=== PATIENT | female | born 1950 | race Asian ===

== ENCOUNTER 2018-01-14 06:23 | Inpatient (IN) | payer MEDICARE, OTHER ==
[2018-01-07 11:11] LABS: HEMATOCRIT 37.8 % (37.0-47.0); HEMOGLOBIN 12.4 gm/dL (12.0-15.0); MCH 28.6 pg (26.0-34.0); MCHC 32.7 g/dL (28.0-37.0); MCV 87.5 fL (80.0-100.0); RBC 4.32 mil/uL (4.20-5.00); RDW-CV 18.3 % (10.5-14.5); WBC 11.3 thou/uL (4.0-11.0)
[2018-01-07 11:16] LABS: URINE BILIRUBIN NEGATIVE (Negative); URINE BLOOD NEGATIVE (Negative); URINE CLARITY CLEAR; URINE COLOR YELLOW; URINE GLUCOSE-RANDOM NEGATIVE (Negative); URINE KETONES NEGATIVE (Negative); URINE LEUKOCYTES-REFLEX NEGATIVE (Negative); URINE NITRITE-REFLEX NEGATIVE (Negative); URINE PROTEIN NEGATIVE (Negative); URINE SPECIFIC GRAVITY 1.025 (1.005-1.030); URINE UROBILINOGEN 0.2 E.U./dl (0.2-1.0)
[2018-01-07 11:19] LABS: PROTIME 9.7 Seconds (9.20-11.50)
[2018-01-07 11:37] LABS: ALBUMIN 3.6 g/dL (3.4-5.0); CALCIUM 8.5 mg/dL (8.5-10.1); CREATININE 0.8 mg/dL (0.6-1.3); POTASSIUM 4.4 mmol/L (3.5-5.1); TOTAL BILIRUBIN 0.4 mg/dL (<0.1-1.0); TOTAL PROTEIN 6.4 g/dL (6.4-8.2)
--- NOTE | 2018-01-07 15:22 | EKG ---
[place] [address] ELECTROCARDIOGRAM REPORT Name: WILLIAM AZEVEDO Room: [facility].#: [id number] Admission: Attend Phys: Nathalie Pacheco Discharge: Date of : 54 Report #: [id number] THIS REPORT FOR: //name// [facility] Test Date: 2018-01-07 Test Time: 11:26:41 Pat Name: WILLIAM AZEVEDO Department: Room: Gender: F Program Management Intern: SARTHAK : 1950 Requested By: Leo Elmore Order Number: [id number] Reading MD: Ricardo Morillo Measurements Intervals Faith Rate: 73 P: 55 WV: 167 QRS: 13 QRSD: 90 T: 21 QT: 395 QTc: 436 Interpretive Statements Sinus rhythm Left atrial enlargement No previous ECG available for comparison Electronically Signed On 01-07-2018 15:22:22 STORM WINDOW INSTALLER by Ricardo Morillo [email or web address] <ELECTRONICALLY SIGNED> By: Ricardo Morillo MD, [facility] 01/07/18 1522 1126 [id number] Ricardo Morillo MD, FAC /EPI
[~2018-01-14] VITALS: Ht 165.1 cm; Wt 81.6 kg
[~2018-01-14 06:23] MED LIST: ADVIL200 M3 PO; LEXAPRO20 MG PO; PROTONIX40 M1 PO; REQUIP 1 MG TABL1 M1 PO; TRAZODONE HCL50 MG PO; WELLBUTRIN SR150 MG PO
[2018-01-14 07:28] VITALS: BP 151/89
[2018-01-14 12:06] VITALS: BP 127/54
--- NOTE | 2018-01-14 12:12 | NUR ---
PATIENT ADMITTED FROM PACU TO ROOM 106. ALERT AND ORIENTED. DROWSY FROM ATIVAN POST OP. DENIES PAIN. REQUESTING TEA AND TOAST. IVF INFUSINF ORDERED. 02 99% ON 3L PER CONT PULSE OX. PICP DRESSING IN PLACE TO LEFT HIP. TEDS/SCD'S/ICE PACK IN PLACE. BED ALARM SET. AT BEDSIDE. WILL CONTINUE TO MONITOR.
[2018-01-14 16:00] VITALS: BP 122/98
--- NOTE | 2018-01-14 16:58 | NUR ---
PATIENT REMAINS ALERT AND ORIENTED. PAIN CONTROLLED WITH PO MEDS. DRESSING TO LEFT HIP DRY AND INTACT-SHAKIRA. HEMOVAC IN PLACE. SCD'S AND TEDS IN PLACE. O2 AT 3L. CONT PULSE OX READING 96%. TOLERATING MEALS. WANTS TO TRANSFER TO [facility] AND CHAIR AFTER DINNER. CALL LIGHT WITHIN REACH. BED ALARM SET. WILL CONTINUE TO MONITOR.
--- NOTE | 2018-01-14 18:03 | NUR ---
HEMOVAC CLAMPED DUE TO 500MLS OUTPUT IN 6 HOURS.
[2018-01-14 20:00] VITALS: BP 105/57
[2018-01-14 23:11] LABS: URINE BILIRUBIN NEGATIVE (Negative); URINE BLOOD NEGATIVE (Negative); URINE CLARITY CLEAR; URINE COLOR YELLOW; URINE GLUCOSE-RANDOM NEGATIVE (Negative); URINE KETONES NEGATIVE (Negative); URINE LEUKOCYTES NEGATIVE (Negative); URINE NITRITE NEGATIVE (Negative); URINE PROTEIN NEGATIVE (Negative); URINE UROBILINOGEN 0.2 E.U./dl (0.2-1.0)
[2018-01-15] VITALS (7 sets, daily range): BP systolic 99–155; BP diastolic 39–74
[2018-01-15 03:41] LABS: HEMATOCRIT 30.6 % (37.0-47.0); HEMOGLOBIN 9.9 gm/dL (12.0-15.0)
--- NOTE | 2018-01-15 04:08 | NUR ---
PATIENT ORIENTED X4, BUT DROWSY. MEDICATED FOR PAIN WITH PARTIAL EFFECT REPORTED. VITALS STABLE ON 2L O2 NC,CONT PULSE OX IN PLACE. DRESSING TO LEFT HIP DRY AND INTACT WITH HEMOVAC IN PLACE. PATIENT UNABLE TO VOID, DE OLIVEIRA CATHETER PLACED, CLEAR YELLOW RETURN. WILL CONTINUE TO MONITOR.
--- NOTE | 2018-01-15 10:44 | NUR ---
HEMOVAC DRAIN REMOVED AT THIS TIME. MINIMAL DRAINAGE IN DRAIN. DRAIN INTACT. TOLERATED WELL. DRESSING IN PLACE.
--- NOTE | 2018-01-15 13:26 | NUR ---
SPOKE WITH PT.AND REGARDING DISCHARGE PLANNING . SHE SAID SHE PLANS TO GO HOME TOMORROW. SHE SAID SHE IS NORMALLY INDEPENDENT AT HOME. WILL BE WITH HER TO ASSIST NEEDED. SHE HAS A WALKER AT HOME BUT HASN'T HAD TO USE IT. DISCUSSED XARELTO. PT.AND QUESTIONED THIS. SHE SAID SHE WAS NOT ON A BLOOD THINNER ABOUT 5 YRS AGO WHEN SHE HAD ORTHO SURGERY. SAID THE DR.SAID HER BLOOD WAS THIN AFTER SURGERY, THEY HAD TROUBLE GETTING HER TO STOP BLEEDING. EXPLANIED PT.S ARE NORMALLY ON A BLOOD THINNER AFTER ORTHOPEDIC SURGERY TO PREVENT BLOOD CLOTS. PT.ALSO CONCERNED ABOUT LAXATIVE,STOOL SOFTNER. SHE CHOSE [facility]. WILL MAKE REFERRAL. JAMIN VELAQSUEZ INFORMED OF THE ABOVE CONVERSATION REGARDING BLOOD THINNER AND LAXATIVE/STOOL SOFTNERS.
--- NOTE | 2018-01-15 16:23 | NUR ---
DC'D DE OLIVEIRA CATHETER AT THIS TIME. PATIENT TOLERATED WELL. CATHETER INTACT. DRAINEDD 1150 ML.
--- NOTE | 2018-01-15 17:25 | NUR ---
ASSUMED CARE OF PATIENT AFTER REPORT THIS MORNING. PATIENT AWAKE, ALERT, AND ORIENTED APPROPRIATELY. PHYSICAL ASSESSMENT COMPLETED AND CHARTED. COMPLAINED OF PAIN THIS SHIFT. GIVEN PRN AND SCHEDULED MEDICATIONS, SEE EMAR FOR DOCUMENTATION. VITAL SIGNS STABLE. OXYGEN SATURATION WITHIN NORMAL LIMITS ON ROOM AIR. PATIENT TRANSFERS AND AMBULATES WITH ASSISTANCE FROM STAFF. USES CALL LIGHT APPROPRIATELY. DENIES NEEDS AT THIS TIME. CALL LIGHT WITHIN REACH. NURSING WILL CONTINUE TO MONITOR.
[2018-01-16 00:18] VITALS: BP 106/44
[2018-01-16 03:56] LABS: HEMATOCRIT 27.3 % (37.0-47.0); MCH 28.1 pg (26.0-34.0); MCHC 32.9 g/dL (28.0-37.0); MCV 85.5 fL (80.0-100.0); MPV 7.2 fl. (7.2-11.1); RBC 3.19 mil/uL (4.20-5.00); RDW-CV 17.7 % (10.5-14.5); WBC 8.4 thou/uL (4.0-11.0)
[2018-01-16 04:00] VITALS: BP 102/34
--- NOTE | 2018-01-16 04:28 | NUR ---
PATIENT REMAINS ALERT AND ORIENTED X4. STATES THAT HER PAIN IS MUCH BETTER THIS AM. UP WITH ASSIST X1 TO BSC, VOIDING ADEQUATELY. SHAKIRA DRESSING INTACT TO LEFT HIP. TOLERATING DIET. DENIES NAUSEA. VITALS STABLE ON ROOM AIR. WILL CONTINUE TO MONITOR.
[2018-01-16 04:31] LABS: CALCIUM 7.8 mg/dL (8.5-10.1); CREATININE 0.8 mg/dL (0.6-1.3); POTASSIUM 4.1 mmol/L (3.5-5.1)
[2018-01-16 08:00] VITALS: BP 136/82
[2018-01-16] MEDS ORDERED: PERCOCET PO (09:21)
[2018-01-16] MEDS ORDERED: WELLBUTRIN SR150 MG PO (09:21)
[2018-01-16] MEDS ORDERED: CELEBREX 200 M200 M1 PO (09:21)
[2018-01-16] MEDS ORDERED: XARELTO10 MG PO (09:21)
[2018-01-16 12:38] VITALS: BP 107/39
[2018-01-16 12:45] VITALS: BP 107/39
[2018-01-16] MEDS ORDERED: ASPIRIN325 PO (12:50)
--- NOTE | 2018-01-16 13:00 | NUR ---
COPAY FOR PT.'S XARELTO IS $166. INFORMED PT. SHE SAID SHE COULD NOT AFFORD THIS. INFORMED JAMIN WALKER. SHE WILL CHECK WITH FOR ALTERNATIVE. FAXED DISCHARGE ORDERS TO [facility] FOR PT/OT. SHE CONFIRED RECEIVING THEM AND THEY WILL SEE PT.TOMORROW.
--- NOTE | 2018-01-16 13:38 | NUR ---
PATIENT LEFT UNIT BY WHEELCHAIR WITH NURSING STAFF. IV DC'D. EDUCATED PATIENT AND ON DISCHARGE INSTRUCTIONS AND NEW MED SCRIPTS. PATIENT AND VERBALIZED UNDERSTANDING. ALL BELONGINGS LEFT WITH PATIENT.
[2018-01-16 13:40] VITALS: BP 107/39
--- NOTE | 2018-01-16 15:52 | S ---
[address] [address] SURGICAL PATH RPT PROCEDURE Name: YODIT AZEVEDO Room: [address] IN [facility].#: [id number] Admission: 01/14/18 Date of : 54 Discharge: 01/16/18 Report #: [id number] Path Case #: [id number] PATHOLOGY REPORT COLLECTION DATE: 01/14/2018 RECEIVED DATE: 01/14/2018 SUBMITTING PHYS: Dr. Leo Elmore II OTHER PHYS: Dr. Checo Neville SPECIMEN(S) RECEIVED: Umer hip bone and tissue * * * * * * * * * * * * FINAL DIAGNOSIS: Left hip bone and tissue: - Benign synovium and dense fibrous connective tissue and benign femoral head tissues including hematopoietic elements, with severe degenerative changes. (RAMU:susan; 01/16/2018) PATHOLOGIST: Davis Lopez M.D. REPORT ELECTRONICALLY SIGNED BY: Davis Lopez M.D. DATE/TIME: 01/16/2018 15:51 * * * * * * * * * * * * GROSS PATHOLOGY: Received in formalin labeled "Yodit Azevedo left hip bone and tissue," is a femoral head with scant attached soft tissue measuring 4.6 x 4.6 x 5.2 cm in greatest dimensions, admixed with bone reamings measuring 5.4 x 3.6 x 1.4 cm in aggregate dimensions. The articular surface is smooth to granular and pale mahmood to mahmood-brown in appearance, and displays a poorly circumscribed area of possible eburnation measuring 1.0 x 0.9 cm. Sectioning the bone reveals pale yellow to hemorrhagic cut surfaces. Land Leasing Information Clerk tissue is submitted in cassette A1, following decalcification. ([facility]; 01/15/2018) CLINICAL HISTORY: Left hip degenerative joint disease INITIAL CPT CODE(S): A; 57900, 53087 Professional services performed by [facility] at [facility], [address] [place] [address], [place] [address]. Technical services performed by [facility] at [address] [place] [address], [address] [address] SURGICAL PATH RPT PROCEDURE Name: YODIT AZEVEDO Room: [address] IN ..#: [id number] Admission: 01/14/18 Date of : 54 Discharge: 01/16/18 Report #: [id number] Path Case #: [id number] [place] [address]. [facility] [address] [place] [address] PHONE: [phone] DIRECTOR: Jerrell Soto M.D. * * * END OF REPORT * * *
--- NOTE | 2018-01-28 10:57 | OP ---
[facility] [address] [place] [address] OPERATIVE REPORT Name: WILLIAM AZEVEDO Room: [address] IN .R.#: [id number] Admission: 01/14/18 Attend Phys: Nathalie Pacheco Discharge: 01/16/18 Date of : 54 Report #: [id number] THIS REPORT FOR: //name// CC: Floyd Saldana DATE OF SERVICE: 01/14/2018 PREOPERATIVE DIAGNOSIS: Left hip osteoarthritis. POSTOPERATIVE DIAGNOSIS: Left hip osteoarthritis. PROCEDURE: Left total hip arthroplasty. SURGEON: Leo Elmore II, PROCUREMENT OFFICER: WILFREDO Saunders ANESTHESIA: General endotracheal. ESTIMATED BLOOD LOSS: 800 mL with 450 mL given back through Cell Saver. ANTIBIOTICS: Per operative record. DRAINS: Medium Hemovac. COMPLICATIONS: None. CONDITION: The patient stable to recovery room. IMPLANTS: Listed in the operative record and progress note. BRIEF HISTORY: The patient is in the preoperative area. Preop H and P was performed. Site was marked, questions were answered. Risks and benefits were discussed with the patient in detail about surgery. The patient wished to proceed and assumed all risks. DESCRIPTION OF PROCEDURE: The patient was taken to the operative suite, placed supine on operating table and given appropriate anesthesia. The patient's operative hip was placed in the Patriot table leg quigley and sterilely prepped and draped in the supine position. Surgery began by a longitudinal incision carried down to the anterior portion of the hip. This was carried down through the subcutaneous tissues. A small alma was made in the tensor fascia. It was then split along its fibers and retracted laterally. The H capsulotomy was then performed and careful hemostasis was maintained with electrocautery and [facility] [address] [place] [address] OPERATIVE REPORT Name: EVEApWILLIAM Gunner Room: [address]#: [id number] Admission: 01/14/18 Attend Phys: Nathalie Pacheco Discharge: 01/16/18 Date of : 54 Report #: [id number] Aquamantys. The head and neck cutting alignment guide was then checked with fluoroscopic guidance. Appropriate cut was made to the head and neck and this was removed. Attention was then turned to the acetabulum. Excess labrum was removed. It was then reamed in sequential fashion up to the appropriate size, which showed excellent bleeding bone and excellent position on fluoroscopic guidance. The acetabular cup was then malleted in position and secured with cancellous screws. Metal liner was then applied. The patient's leg was then rotated and extended in the Patriot table to expose the femur. It was then broached in sequential fashion up to the appropriate size. The appropriate neck was then trialed with an appropriate head length and shown to have excellent fit, fill with excellent stability of the hip through all range of motion. These trials were then removed. The final stem was then malleted in position and the final head and neck was then malleted into position. It was reduced in appropriate fashion, checked with the C-arm for appropriate leg length and showed excellent leg length throughout the exam without evidence of dislocation upon range of motion and shuck testing. The wound was then copiously irrigated. Hemostasis was maintained with electrocautery and Aquamantys. Pain cocktail was injected. PRP gel was sprayed throughout the internal aspects of the hip, and the drain was activated. The H capsulotomy was then closed with #1 Vicryl in [id number] fashion. Tensor fascia was then closed with #1 Vicryl in running fashion. Skin was closed with 2-0 Vicryl and running 3-0 Monocryl. Dermabond and sterile dressing applied. The patient was transferred to recovery room in stable condition. Counts were correct throughout the procedure. <ELECTRONICALLY SIGNED> By: Leo Elmore II, DO 01/28/18 1057 1058 [id number] Elmore II DO /nt
== END 2018-01-16 13:40 | disposition home health service (06) | DRG 470 ==
LOC: M.ORTHSURG 06:23 → M.TBA 07:01 → M.ORTHSURG 07:01
PROVIDERS: Internal Medicine; Orthopaedic Surgery; ADMIT Internal Medicine
PROC: 0SRB01Z Replacement of Left Hip Joint with Metal Synthetic Substitute, Open Approach (ICD-10-PCS; principal; 2018-01-14)
DX: M16.12 Unilateral primary osteoarthritis, left hip (principal); Z96.641 Presence of right artificial hip joint; K21.9 Gastro-esophageal reflux disease without esophagitis; F17.210 Nicotine dependence, cigarettes, uncomplicated; F32.9 Major depressive disorder, single episode, unspecified; Z98.84 Bariatric surgery status

== ENCOUNTER 2018-02-16 16:38 | Emergency (ER) | payer MEDICARE, OTHER ==
[~2018-02-16] VITALS: Ht 165.1 cm; Wt 79.4 kg
[~2018-02-16 16:38] MED LIST changes: +ASPIRIN325 PO; +CELEBREX 200 M200 M1 PO; +PERCOCET PO; +XARELTO10 MG PO
[2018-02-16] MEDS ORDERED: BACTRIM DS TAB1 EACH PO (17:05)
[2018-02-16 17:21] LABS: ABSOLUTE BASOPHILS 0.1 thou/uL (0.0-0.2); ABSOLUTE EOSINOPHILS 0.1 thou/uL (0.0-0.7); ABSOLUTE LYMPHOCYTES 2.8 thou/uL (0.8-5.3); ABSOLUTE MONOCYTES 0.5 thou/uL (0.0-1.2); ABSOLUTE NEUTROPHILS 3.2 thou/uL (1.6-8.1); BASOPHILS 0.8 %; EOSINOPHILS 1.9 %; HEMATOCRIT 28.2 % (37.0-47.0); HEMOGLOBIN 9.2 gm/dL (12.0-15.0); LYMPHOCYTES 41.7 %; MCH 26.3 pg (26.0-34.0); MCHC 32.6 g/dL (28.0-37.0); MCV 80.6 fL (80.0-100.0); MONOCYTES 7.5 %; MPV 7.3 fl. (7.2-11.1); NUCLEATED RBCS 0 /100WBC; PLATELET COUNT* 242 thou/uL (150-400); POLYS 48.1 %; RBC 3.51 mil/uL (4.20-5.00); RDW-CV 18.5 % (10.5-14.5); WBC 6.6 thou/uL (4.0-11.0)
[2018-02-16 17:26] LABS: CALCIUM 8.7 mg/dL (8.5-10.1); CREATININE 0.9 mg/dL (0.6-1.3); POTASSIUM 4.5 mmol/L (3.5-5.1)
[2018-02-16 17:27] LABS: APTT 28.5 Seconds (25.0-31.3)
[2018-02-16 17:31] LABS: ALBUMIN 3.2 g/dL (3.4-5.0); TOTAL BILIRUBIN 0.2 mg/dL (<0.1-1.0); TOTAL PROTEIN 5.9 g/dL (6.4-8.2)
[2018-02-16] MEDS ORDERED: NORCO 5-325 TA1 EAC1 PO (18:48)
[2018-02-16 19:11] VITALS: BP 123/56
== END 2018-02-16 19:12 | disposition home or self-care (01) ==
LOC: M.ERS 16:38
PROVIDERS: Nurse Practitioner Family
DX: G89.29 Other chronic pain (principal); M54.9 Dorsalgia, unspecified; Z76.0 Encounter for issue of repeat prescription; K21.9 Gastro-esophageal reflux disease without esophagitis; G25.81 Restless legs syndrome; F17.200 Nicotine dependence, unspecified, uncomplicated